=== PATIENT | male | born 1985 | race Caucasian/White ===

== ENCOUNTER 2022-02-23 12:38 | Outpatient (CLI) | payer SELFPAY ==
--- NOTE | 2022-02-23 12:47 | US_ITS ---
STUDY: ABDOMINAL ULTRASOUND - RIGHT UPPER QUADRANT REASON FOR VISIT: Male, 36 years old ABD PAIN TECHNIQUE: Ultrasound evaluation of the right upper quadrant was performed with real-time and static ayala-scale imaging. TECHNICAL QUALITY: Adequate. COMPARISON: None. FINDINGS: Liver: The liver measures 16.3 cm. There is increased echogenicity consistent with fatty infiltration. The bile ducts are within normal limits. There is hepatic color flow. The direction of portal flow is hepatopetal. There is no demonstrated mass lesion. Gallbladder: Normal distended gallbladder. The gallbladder wall measures 2.2 mm. There is a negative sonographic Llanos''s sign. There is no pericholecystic fluid. There is a solitary echogenic gallstone within the gallbladder. Sludge is seen in the gallbladder lumen. A small gallbladder polyp is present measuring 0.7 cm x 0.7 cm x 0.6 cm. Common Bile Duct (C.B.D.): The common bile duct measures 4.6 mm. Pancreas: Normal size of the head, body and tail of the pancreas. There is increased echogenicity of the pancreas. There is no demonstrated pancreatic mass or cyst. Right Kidney: Normal size of the right kidney. The right kidney measures 10.8 cm x 5.3 cm x 5.9 cm. Normal renal cortex. The right cortex measures 1.4 cm. There is no demonstrated renal mass or cyst. There is no right hydronephrosis. US/Gallbladder IMPRESSION: Fatty infiltration of the liver. Solitary gallstone measuring 1.4 cm x 1.2 cm. Small gallbladder polyp and sludge in the gallbladder lumen. Electronically Signed: Nakul Nath MD at 13:41 EDT ,
== END 2022-02-23 23:59 | disposition home or self-care (01) ==
PROVIDERS: PCP Nurse Practitioner Family; Referring Provider Nurse Practitioner Family; Visit Provider Nurse Practitioner Family
DX: K80.20 Calculus of gallbladder without cholecystitis without obstruction (principal); K76.0 Fatty (change of) liver, not elsewhere classified
CPT/HCPCS: 76705

== ENCOUNTER 2022-03-02 05:56 | Day surgery (SDC) | payer SELFPAY, OTHER ==
[2022-03-02] VITALS (8 sets, daily range): BP systolic 103–122; BP diastolic 63–91; PULSE 52–62; RESP 16; TEMP 36.3–36.9; O2SAT 91–98; BMI 29.0
--- NOTE | 2022-03-02 | GALL_PTH ---
PATIENT: JERSON SOLANO LOC: [facility] U#:[id number] AGE/SX: 36/M ROOM: RE03/02/[address]: Dr. Kit Dunn MD : 1985 BED: DIS: 03/02/2022 SPEC #: [id number] RECD: 03/02/22 14:32 STATUS: MONA PÉREZDominique #: [id number] QUEENIE: 03/02/22 00:[address]: Kit Dunn DEPT: SURGICAL PATHOLOGY RECD BY: Ira Kaur ENTERED: 03/03/22 09:52 SP TYPE: DONALD VALERA DR: Tabatha Esparza, GRAPHICS MANAGER-C Tissues: Gallbladder, NOS Procedures: Surgery Specimen Level III HEADER OPERATION: Laparoscopic cholecystectomy with IOC PRE-OP DIAGNOSIS: Symptomatic cholelithiasis TISSUE SUBMITTED: Gallbladder MICROSCOPIC DIAGNOSIS Gallbladder, cholecystectomy: Acute and chronic cholecystitis with denudation of mucosa and cholelithiasis. AM:nabila 03/04/2022 MICROSCOPIC DESCRIPTION Slides are reviewed. GROSS DESCRIPTION Received is one container labeled with the patient's name and designated gallbladder. The specimen consists of a gallbladder measuring 8 x 3.5 x 2.5 cm. The external surface is smooth and glistening. Focally, it is granular, hemorrhagic and contains cautery artifact. The lumen of the gallbladder contains yellow-green mucoid bile and a single ovoid, crystalline yellow-jimenez calculus measuring 2.2 cm in greatest dimension. The gallbladder mucosa is reddish-jimenez and hemorrhagic without any mass lesions. The gallbladder wall averages 0.4 cm in thickness and is free of mass lesions. Conventional Machinist sections of the gallbladder and the cystic duct at margin of resection are submitted in one cassette. / AM:nabila 03/03/2022 TC:2 CPT: 93463
--- NOTE | 2022-03-02 06:24 | EKG12_ITS ---
Test Reason : PRE OP Blood Pressure : / mmHG Vent. Rate : 048 BPM Atrial Rate : 048 BPM P-R Int : 154 ms QRS Dur : 082 ms QT Int : 450 ms P-R-T Axes : 006 -08 -01 degrees QTc Int : 402 ms Sinus bradycardia Otherwise normal ECG No previous ECGs available Confirmed by OSIEL CEE, IAN ([id number]), editor newspaper RUMA TRINH ([id number]) on 03/06/2022 1:35:48 PM Referred By: Kit Dunn Confirmed By:LINDSAY CARTAGENA MD
[2022-03-02] MEDS: Lactated Ringers 1,000 ML 15 ML IV ×3 (06:55→10:46)
[2022-03-02 07:17] LABS: ALB/GLOB Ratio 0.8 RATIO (0.9-2.4); AST(SGOT) 21 U/L (15-37); Alanine Aminotransfer ALT/SGPT 38 U/L (16-61); Albumin, Serum 3.3 g/dL (3.2-5.0); Alkaline Phosphatase 56 U/L (45-117); Anion Gap 5 (5-15); BUN 11 mg/dL (7-18); BUN/Creat Ratio 12.6 RATIO (10-20); Calcium,Total 8.8 mg/dL (8.5-10.1); Chloride 107 mmol/L (98-107); Creatinine, Serum 0.87 mg/dL (0.70-1.30); EST Glomerular Filtration Rate 104 mL/min (>60); Est Glom Filt Rate - Afr Amer 126 mL/min (>60); Estimated Creatinine Clearance 108.69 ml/min; Globulin 3.9 g/dL (2.2-4.2); Glucose 99 mg/dL (74-106); Protein, Total 7.2 g/dL (6.4-8.2); Sodium Level 139 mmol/L (136-145)
[2022-03-02] MEDS: Cefazolin 2 GM in 0.9% Normal Saline 100 ML IV (07:28)
--- NOTE | 2022-03-02 07:54 | RAD_ITS ---
STUDY: INTRAOPERATIVE CHOLANGIOGRAM. REASON FOR EXAM: Male, 36 years old. LAP MARTIN WITH IOC FLUOROSCOPY TIME (if supplied): ( 35 seconds ) minutes/seconds. A cine run of 188 images was submitted. TECHNIQUE: Intraoperative Cholangiogram was performed by the surgeon. Imaging was submitted. COMPARISON: None. FINDINGS: The intra and extrahepatic biliary ducts are unremarkable. No evidence of obstruction. No intraluminal filling defects are seen. RAD/Cholangiogram/ O R,Initial IMPRESSION: Unremarkable intraoperative cholangiogram. Electronically Signed: Nakul Nath MD at 14:14 EDT ,
[2022-03-02] MEDS: Bupivacaine Mpf 0.5% 30 ML VIAL (07:55)
--- NOTE | 2022-03-02 09:49 | HP.PCM_ITS ---
History and Physical Date of Admission: 03/02/22 Date of Service: 02/25/22 MR#:[id number]:[id number]: JERSON RAMIREZ [facility] #:[id number]:1985 Provider:Dr. Kit Dunn MDAge/Sex: 36/M [facility] Vital Signs 02/25/22 09:21 Height 5 ft 6 in Weight: 187 lb 2 oz BMI 30.2 BP 104/74 Blood Pressure Location Rt brachial Position Sitting Respiration 16 Pulse 79 Pulse Source Monitor Temp 97.6 F L Temp Source Temporal Pulse Oximetry (%) 96 Oxygen Delivery Method room air Intake Visit Reasons: GAULLSTONES Chief Complaint: Gallstone, abd pain Moving Picture Operator Required: No Is patient in pain?: No Allergies No Known Allergies Allergy (Verified 02/25/22 09:22) Medications NK 02/25/22 [History Confirmed 02/25/22] PFSH Surgical History (Updated 02/25/22 @ 09:20 by Wednesday) History of dental surgery Family History (Updated 02/25/22 @ 09:20 by Marge Wednesday) Father Heart disease Mother Hypertension Social History (Updated 02/25/22 @ 09:21 by Marge Wednesday) Smokeless tobacco user: chewing tobacco alcohol intake: never substance use type: does not use HPI HPI HPI: JERSON RAMIREZ, is a 36 M who presents to the office today for who presents with right upper quadrant pain and gallstones. They are referred for surgical consultation from Diane Esparza NP and Dr. Russ Lowery's office. Pain began approximately a week and a half ago is described as sharp and intensely present in the right upper quadrant so that it caused Mr. Ramirez to doubled over in pain. His last episode came yesterday and was associated with some nausea. He states his prior episodes have been preceded by meals of beef brisket, barbecue ribs, pie, and ice cream. He does admit to at least 2 prior episodes a couple of years ago. He also recalls that this episode was preceded by a fatty meal which he calls a triple baconator and fries. He denies any associated fevers or chills. He states that all of these pain symptoms seem to have occurred late at night. Patient has tried a number of home remedies without much relief of his symptoms. This included tea, toast, and 1 gallon of apple juice yesterday. Last evening then he tried all of oil, lemon juice, and slippery elm. He states that this latter regimen led to some uncomfortable reflux symptoms. Then this morning he consumed 2 glasses of 4 tablespoons Epson salts dissolved in hot water. This resulted in some loose bowel movements, but still did not resolve his pain. Previous work-up has included: Right upper quadrant ultrasound on 02/23/2022. This demonstrated a normal distended gallbladder. Gallbladder wall measured 2.2 mm. There is no pericholecystic fluid. Within the gallbladder lumen there was a 0.7 x 0.7 x 0.6 cm gallbladder polyp as well as a 1.4 x 1.2 cm gallstone. Common bile duct measured 4.6 mm in diameter. Lastly there was fatty infiltration noted within the liver.. ROS General General: Yes fatigue; No weight change, appetite, colon cancer, breast cancer or weakness HEENT HEENT: No difficulty swallowing, eye injury, eye surgery, swollen glands or hoarseness Endo Endocrine: No thyroid disease, diabetes mellitus, thyroid cancer, Hair loss, heat intolerance or cold intolerance Skin Skin: No rash or changing moles Musc Musculoskeletal: No back problems, arthritis, rheumatoid arthritis, gout or joint pain Cardio Cardiovascular: No murmur, pacemaker, heart disease, atrial fibrillation, high blood pressure, heart attack, heart stent, palpitations, shortness of breat with exertion or chest pain Psych Psychiatric: No depression, anxiety or hearing voices Resp Respiratory: No shortness of breath, No sleep apnea, No cough, No COPD, No asthma, No emphysema and No wheezing Gastro Gastrointestinal: Yes abdominal pain, No nausea or vomiting, No diarrhea, Yes constipation, No blood in stool, No acid reflux, No hemorrhoids, No ulcers, Yes gallbladder problem and No black,tarry stools Sonny Hematologic: No blood thinners, No blood disorders, No bleeding, No anemia and No blood clots Neuro Neurologic: No system reviewed and no additional complaints, except as documented, No as per HPI, No abnormal gait, No abnormal hearing, No abnormal movements, No abnormal speech, No behavioral changes, No burning sensations, No confusion, No convulsions, No disequilibrium, No dizziness, No localized we akness, No frequent falls, No headache(s), No lack of coordination, No loss of vision, No memory loss, No numbness, No other visual disturbances, No radicular pain, No restless legs, No sensory deficit, No syncope, No tingling, No tremor(s), No weakness and No other Exam Const General: cooperative, healthy appearing, comfortable and no acute distress Nutritional Appearance: overweight Resp Effort & Inspection: normal respiratory effort Auscultation: clear to auscultation bilaterally, no rales, no rhonchi and no wheezes Cardio Rate: regular rate Rhythm: regular rhythm Heart Sounds: S1 normal and S2 normal GI Other: Nondistended, soft, mildly tender to palpation in the right upper quadrant. All other abdominal quadrants are nontender with palpation. No hernias palpable. Negative Llanos sign. Assessment and Plan Assessment and Plan (1) Symptomatic cholelithiasis: Status: Acute Comment: This is a 36-year-old, otherwise healthy, male who presents with a week and a half history of acute onset right upper quadrant pain and associated nausea. Pain is primarily postprandial and occurs in the evenings. Pain has been so severe it is altered sleep habits. Patient has just recently been trying to limit his diet to include less dietary fat with some improvement in his symptoms. Right upper quadrant ultrasound from 02/23/2022 confirmed the presence of a large gallstone as well as an associated gallbladder polyp. There is no evidence of cholecystitis aside from a distended gallbladder with this imaging. On exam, the patient certainly has tenderness in the right upper quadrant in the vicinity of the gallbladder, but there is no clinical Llanos sign. Based on patient's history and exam, I do believe his symptoms are derived from his gallbladder. I do not find evidence of acute cholecystitis. Therefore, I recommend dietary modifications with a relatively short interval to surgical removal of the gallbladder. We discussed the procedure as well as post procedure expectations. This was facilitated with the use of schematic drawings. All questions were taken from the patient and his spouse. They wish to proceed as described and wished to undergo surgery as soon as availability can be found. Plan - Dr. Kit Dunn MD: ?Recommendations for low-fat diet provided ?Outpatient laparoscopic cholecystectomy with intraoperative cholangiogram to be scheduled early next week. (2) Gallbladder polyp: Status: Acute Comment: Incidental finding on patient's recent right upper quadrant ultrasound. Plan - Dr. Kit Dunn MD: Laparoscopic cholecystectomy recommended as above (3) Fatty infiltration of liver: Status: Acute Comment: This is a 36-year-old male with primary presentation for symptomatic cholelithiasis, however, ultrasound did incidentally note changes consistent with fatty liver infiltration. Taken together with his likely development of cholesterol?base gallstones dietary habits described in his history I have recommended greater attention to his fat intake and lipid panels. This is of greater concern, in light of the patient's reported family history of heart disease on his paternal side as he reports a paternal grandfather passed from a heart attack and several other paternal relatives deal with heart related diagnoses. Plan - Dr. Kit Dnun MD: ?Dietary modifications to restrict fat recommended. Also recommended attention to lipid panel and use of medical therapy as deemed necessary I have re-examined the patient. There are no clinical changes since date of exam. I, again, reviewed the procedure and postoperative expectations with patient and his . They are apprehensive given that this is his first surgery, but otherwise willing to proceed as described. Therefore we will proceed for scheduled laparoscopic cholecystectomy with intraoperative cholangiogram.
--- NOTE | 2022-03-02 09:49 | PCM.OPRPT ---
Report of Operation Date of Procedure: 03/02/22 Pre-Operative Diagnosis: Symptomatic cholelithiasis Post-Operative Diagnosis: Acute on chronic cholecystitis Surgery/Procedure Performed:: 1. Laparoscopic cholecystectomy 2. Intraoperative cholangiogram Description of Surgical Findings:: ?Severely inflamed gallbladder with adherent omentum caking around the lower one half of the gallbladder ?Cholangiogram showing normal gallbladder anatomy with standard length cystic duct and antegrade flow through the common bile duct into the duodenum. There is good retrograde flow into the common hepatic and right and left hepatic ducts once the patient was repositioned. ?Hemostatic gallbladder fossa Surgeon: Kit Dunn cardiac cath lab radiology technologist: Blanca Diaz Type of Anesthesia: General/Supplemental Anesthesiologist: Magdaleno Ponce Specimen's removed: Gallbladder Drains: None Estimated Blood Loss (mL): 50 Description of Procedure: After proper identification in the preoperative holding area, the patient was brought to the operating room where he was positioned supine on the operating room table. Preoperatively SCDs were placed and antibiotics were administered. General anesthesia was then induced. Patient's abdomen was prepped and draped in usual sterile fashion. A formal timeout was conducted to confirm both patient and the procedure. Procedure was begun with a supraumbilical incision which was extended deeply down to the level of the fascia. The fascia was elevated and incised, as well as the peritoneum. A finger sweep was performed to ensure there were no underlying adhesions and a 12 mm balloon trocar was inserted. Pneumoperitoneum was established at 15 mmHg. 3 additional trocars were placed in the epigastrium (12 mm) and in the right upper quadrant (2 x 5 mm). Inspection of the peritoneum revealed no inadvertent injury to the viscera below. The gallbladder was visualized with severe inflammation and caking of the omentum along the lower half. The gallbladder was also distended to the point that it would not allow us to place a grasper, so it was decompressed with the aspiration device from the suction-drawer waxer. The gallbladder fundus was then grasped and elevated cephalad. Then, using careful dissection the omentum was taken down and the structures of the hepatocystic triangle were delineated. Once the cystic duct was positively identified and I had a clear view of the course of the cystic artery, the cystic duct was singly clipped distally and partially transected with a ductotomy. A cholangiocatheter was fed into the proximal segment of the cystic duct and clipped into place. A cholangiogram was then obtained showing a standard length cystic duct flowing into a common bile duct with unobstructed antegrade flow of contrast into the duodenum. There was also retrograde flow through the common hepatic duct into the right and left hepatic ducts. Satisfied with this result, the procedure was terminated and the catheter was withdrawn after the clip was removed. The cystic duct was then triply clipped and sharply divided. Additional dissection was required to clearly visualize the cystic artery entering the gallbladder at the level of the hilar plate. Once I was able to establish this clear view, the cystic artery was doubly clipped and sharply divided. The gallbladder was then removed from the gallbladder fossa with the use of electrocautery. This process proved somewhat more challenging than usual given the dense inflammation of the gallbladder of the gallbladder to the liver without a edema plan. Selective electrocautery was used to obtain hemostasis in the gallbladder fossa. The gallbladder was placed in an Endo Catch bag and removed from the peritoneum?this required enlargement of the subxiphoid port site at both the level of the fascia and the skin to accommodate passage of the specimen. Morison's pouch was irrigated and the effluent was suctioned free of the peritoneum. Hemostasis was again confirmed. Pneumoperitoneum was evacuated and the fascia of the 12 mm supraumbilical port site was closed with #1Vicryl in a acedbc-cd-wufyl fashion. The subxiphoid port site fascia was closed with a #1 PDS in a [id number] fashion. A total of 30% mL of half percent bupivacaine anesthetic was injected at the port sites for postoperative pain control. The skin of each port site was then closed in subcuticular fashion using 4-0 Monocryl. Steri-Strips and bandages were applied as dressings. Patient tolerated the procedure well without any apparent complications. On emergence from their anesthetic the patient was taken to PACU for ongoing recovery. Complications None Admit VTE Documentation VTE Mechan Device Prophylaxis: SCD's Procedures Digestive 40xxx-49xxx: 15282 Laparo cholecystectomy/graph
--- NOTE | 2022-03-02 10:03 | EX.PCM.DISCH ---
Discharge Instructions Diet Discharge Diet: No restrictions Activity Discharge Activity: May Not Drive May shower in (days): 1 Ice area for (Minutes): 20 Lifting Restrictions: No lifting greater than 15 pounds for 2 weeks after surgery Dressing / Incision Call your doctor if your incision/area has: Continuous Slow Oozing, Increased Pain/ Swelling, Increased Redness, Foul Smelling Discharge and Swelling at the incision site Call your doctor if you observe: Fever of 101 or Higher Remove Dressing in: 1 day (Please leave Steri-Strips intact until they fall off spontaneously or are taken off at your follow-up visit) Cleanse incision/area with: Soap & Water Follow Up Care Please Follow Up With: Kit Dunn MD When: 7-10days postop Test Results: Test results from this visit will be discussed in further detail at your follow-up appointment, if applicable. Discharge Plan Admission Primary Reason for Your Visit: Gallbladder removal Attending Provider: Kit Dunn Primary Care Provider: Tabatha Esparza Instructions Patient Instructions: After Gallbladder Surgery, Cholecystectomy Laparoscopic Dc Discharge Orders/Prescriptions Prescriptions: New oxycodone 5 mg capsule 5 mg PO Q6H PRN (Reason: pain) 5 Days Qty: 20 RF: 0 Continued multivitamin Tablet 1 tab PO DAILY RF: 0 Referrals / Follow Up: Tabatha Esparza, EXECUTIVE STEWARD-C [Primary Care Provider] - Disposition Disposition (needs filled in before D/C Order can be placed): Home, Self Care
[2022-03-02] MEDS: oxyCODONE 5 MG Tablet PO (11:34)
--- NOTE | 2022-03-02 12:39 | SUR.PHASEII ---
PATIENT IS CLEARED FOR DISCHARGE. AWAITING RIDE AT THIS TIME.
== END 2022-03-02 23:59 | disposition home or self-care (01) ==
LOC: SDC 06:03 → AC 06:03
PROVIDERS: PCP Nurse Practitioner Family; Referring Provider Surgery; Visit Provider Surgery
PROC: (CPT 47610; principal; 2022-03-02 07:10)
DX: K80.12 Calculus of gallbladder with acute and chronic cholecystitis without obstruction (principal); K76.0 Fatty (change of) liver, not elsewhere classified; F17.220 Nicotine dependence, chewing tobacco, uncomplicated
CPT/HCPCS: 47563; 00790; 74300; 76000; 80053; 87426; 88304; 93005; J7120; J2405